=== PATIENT | male | born 1965 | race Caucasian/White ===

== ENCOUNTER 2016-12-08 16:37 | Observation (INO) | payer OTHER ==
[2016-12-08] MEDS ORDERED: ONDANSETRON HCL/PF 2 MG/ML VIAL IV ONE (16:46)
[2016-12-08] MEDS ORDERED: MORPHINE SULFATE 2 MG/ML DISP.SYRIN IV ONE ×2 (16:46→18:12)
[2016-12-08] MEDS ORDERED: DIPHTH,PERTUSS(ACELL),TET VAC 0.5 ML VIAL IM ONE ×2 (16:46→16:49)
[2016-12-08] MEDS ORDERED: MORPHINE SULFATE 2 MG/ML DISP.SYRIN ONE ×2 (16:48→18:13)
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
[2016-12-08] MEDS ORDERED: ONDANSETRON HCL/PF 2 MG/ML VIAL ONE (16:51)
[2016-12-08 16:57] LABS: Hematocrit 44.8 % (42.0-52.0); Hemoglobin 16.4 gm/dL (13.5-18.0); Mean Cell Volume 89.1 fl (78-100); Mean Corpuscular Hemoglobin 32.6 pg (27-31); Mean Corpuscular Hgb Conc 36.6 g/dl (32-36); Mean Platelet Volume 10.3 fl (6.0-9.5); Neutrophil % 48.1 % (42-75.0); Platelet Count 246 K/mm3 (150-450); Red Blood Count 5.03 M/mm3 (4.7-6.0); Red Cell Distribution Width 12.7 % (11.5-14.0); White Blood Count 10.4 K/mm3 (4.0-10.5)
[2016-12-08 17:11] LABS: Albumin * 4.1 gm/dl (3.4-5.0); Anion Gap 15.8 mmol/L (6.8-13.8); Bilirubin, Total 0.8 mg/dL (0.0-1.1); Ca. Corrected For Albumin 8.3 mg/dL (8.4-10.2); Calcium * 8.7 mg/dL (7.9-10.9); Carbon Dioxide 25.1 mmol/L (24-32.6); Potassium 4.9 mmol/L (3.4-4.6); Total Protein 7.5 gm/dL (6.2-8.2)
[2016-12-08 18:26] LABS: Cocaine Ur Negative (NEGATIVE); Urine Barbiturate Negative (NEGATIVE); Urine Benzodiazepines Negative (NEGATIVE); Urine PCP Negative (NEGATIVE); Urine THC Negative (NEGATIVE)
[2016-12-08 18:30] LABS: Urine Appearance Clear; Urine Bilirubin Negative (NEGATIVE); Urine Blood Negative /ul (NEGATIVE); Urine Color Yellow; Urine Ketone Negative (NEGATIVE)
[2016-12-08 18:31] LABS: Urine Bacteria None Seen; Urine Nitrite Negative (NEGATIVE); Urine Protein Negative (NEGATIVE); Urine RBC None Seen /hpf (0-5); Urine Specific Gravity 1.015 SP.GR. (1.005-1.030); Urine Urobilinogen Normal (NORMAL); Urine WBC 0-5 /hpf (0-5)
[2016-12-08 18:32] LABS: Urine Opiates Positive (NEGATIVE)
[2016-12-08] MEDS ORDERED: ONDANSETRON HCL/PF 2 MG/ML VIAL IV PRN (19:04)
[2016-12-08] MEDS ORDERED: IBUPROFEN 600 MG TABLET PO PRN (19:04)
[2016-12-08] MEDS ORDERED: MORPHINE SULFATE 4 MG/ML SYRG IV PRN (19:04)
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
[2016-12-08] MEDS: NORMAL SALINE 1,000 ML IV PRN (20:24)
[2016-12-08] MEDS: oxyCODONE HCL/ACETAMINOPHEN 1 TAB TABLET PO PRN (20:26)
[2016-12-08] MEDS ORDERED: SENNOSIDES/DOCUSATE SODIUM 1 TAB TABLET PO SCH (21:00)
[2016-12-09] MEDS: NORMAL SALINE 1,000 ML IV PRN (04:42)
[2016-12-09] MEDS: oxyCODONE HCL/ACETAMINOPHEN 1 TAB TABLET PO PRN ×2 (04:44→09:05)
[2016-12-09 06:38] LABS: Anion Gap 12.9 mmol/L (6.8-13.8); BUN/Creatinine Ratio 13.3 (9.0-21.6); Calcium * 8.1 mg/dL (7.9-10.9); Carbon Dioxide 24.8 mmol/L (24-32.6); Potassium 3.7 mmol/L (3.4-4.6)
[2016-12-09] MEDS ORDERED: NICOTINE 21 MG PATC TD SCH (07:00)
[2016-12-09] MEDS ORDERED: MORPHINE SULFATE 2 MG/ML DISP.SYRIN IV PRN (07:14)
--- NOTE | 2016-12-09 09:34 | CONS ---
[facility] - General Date of Service: 12/09/16 Source: patient, family, RN notes reviewed Exam Limitations: no limitations - History of Present Illness Initial Comments: ladder slid and he was left hanging and then fell on his left side. initial evaluation revealed fractured left 6th rib and very small pneumothorax. lacerations and contusions. Severity: mild Modifying Factors - (Worsens): Reports: movement Modifying Factors - (Improves): Reports: immobilization Associated Symptoms: other - left arm, rib and hip sore Allergies/Adverse Reactions: Allergies Penicillins Allergy (Unknown, Verified 12/08/16 19:52) Home Medications: Home Medications Medication Instructions Recorded Last Taken NK [No Home Medication] 12/08/16 Unknown - Patient's Past Medical History Patient History - Medical: Other - MRSA Patient History - Cardiac/Respiratory: Pneumonia Patient History - Cancer: No Hx of Cancer Patient History - Surgical Procedures: Total Knee Replacement, T & A, Other, Hernia Repair, Orthopedic Patient History - Other: None - Family History Grandfather-Maternal Family History - Medical: Family History - Cardiac/Respiratory: Myocardial Infarction Father Family History - Medical: Family History - Cancer: Throat - Social History Living Situations: spouse Abuse History: No History of abuse Psych History: No pertinent hx Smoking Status: Current every day smoker - 35 yr half pack a day smoker. Cigarettes Packs Per Day: 2 Have you smoked in the past 12 months: Yes Do you dip or chew tobacco: No Patient requests Smoking Cessation Consult: Yes Initiate information on Smoking Cessation: Yes Alcohol Use: occasionally Drug Use: none - Immunizations Immunizations Up to Date: No Procedures REPAIR RIGHT INGUINAL REGION, OPEN APPROACH (03/22/15) Medications - Medications Current Medications: Current Medications Sodium Chloride (Sodium Chloride 0.9%) 1,000 mls @ 125 mls/hr IV .Q8H PRN PRN Reason: HYDRATION Stop: 01/07/17 19:54 Last Admin: 12/09/16 04:42 Dose: 125 mls/hr Nicotine (Nicoderm) 21 mg TD Q24H CORA Stop: 01/08/17 07:01 Last Admin: 12/09/16 07:44 Dose: 21 mg Oxycodone/Acetaminophen (Percocet 5 Mg/325 Mg) 2 tab PO Q4H PRN PRN Reason: Moderate Pain Stop: 01/07/17 19:05 Last Admin: 12/09/16 09:05 Dose: 2 tab Senna/Docusate Sodium (Senokot-S) 2 tab PO HS CORA Stop: 01/07/17 21:01 Last Admin: 12/08/16 20:27 Dose: 2 tab Review of Systems - Review of Systems EENTM: Present: No Symptoms Reported Respiratory: Present: Other - no SOB, hurts to cough Abdominal: Present: No Symptoms Reported Genitourinary: Present: No Symptoms Reported Musculoskeletal: Present: Other - pain left arm and hip. OOB independently Neurological: Present: No Symptoms Reported Skin: Present: No Symptoms Reported Physical Examination - Exam Vital Signs: Vital Signs - Last Taken Temp 36.8 C 12/09/16 06:50 Pulse 69 12/09/16 06:50 Resp 17 12/09/16 06:50 BP 125/72 12/09/16 06:50 Pulse Ox 96 12/09/16 06:50 O2 Oxygen Delivery Method Room Air Constitutional: Present: Alert, Oriented x3, Cooperative, No distress ENT Exam: Present: normal ENT inspection Eye Exam: bilateral eye: normal inspection Neck: Present: full range of motion, normal inspection Respiratory: Present: normal breath sounds, no respiratory distress Cardiovascular/Chest: Present: normal peripheral pulses Abdomen: Present: other - denies pain or tenderness /Rectal: Present: Exam deferred Extremity: Present: normal range of motion, normal inspection Skin Exam: Present: normal color Neurologic: Present: stamp clerk II-XII nml as tested, no motor/sensory deficits Appearance: Present: appropriate appearance, appropriate insight Eye contact: Present: cooperative, good eye contact, normal speech Thoughts: Present: normal thought pattern - Assessments/Findings (1) Closed rib fracture Problem: Acute Qualifiers: Encounter type: initial encounter Rib fracture type: single rib Laterality: left Qualified Code(s): S22.32XA - Fracture of one rib, left side , initial encounter for closed fracture (2) Left pulmonary contusion Problem: Acute Qualifiers: Encounter type: initial encounter Qualified Code(s): S27.321A - Contusion of lung, unilateral, initial encounter (3) Pneumothorax on left Diagnosis(s): The finding is not visible on CXR and has not increased in size. Should not increase in size at this juncture Explained to patient and he knows to return for exam if becomes SOB Problem: Acute
--- NOTE | 2016-12-09 09:48 | DS ---
(1) Closed rib fracture Problem: Acute Qualifiers: Encounter type: initial encounter Rib fracture type: single rib Laterality: left Qualified Code(s): S22.32XA - Fracture of one rib, left side , initial encounter for closed fracture (2) Fracture, rib Problem: Acute Qualifiers: Rib fracture type: single rib Laterality: left (3) Laceration of wrist, left Problem: Acute Qualifiers: Encounter type: initial encounter Qualified Code(s): S61.512A - Laceration without foreign body of left wrist, initial encounter (4) Left pulmonary contusion Problem: Acute Qualifiers: Encounter type: initial encounter Qualified Code(s): S27.321A - Contusion of lung, unilateral, initial encounter (5) Pneumothorax on left Problem: Acute Description of Stay: Jorje is a 51 year old male who fell from a ladder while working on his roof. Fall was approximately 18 feet. Patient sustained a laceration to his left hand and was sutured in the ER. Patient landed on his left side sustaining left 6th rib fracture, left pulmonary contusion and tiny left pneumothorax. Patient was stable and pain was controlled overnight. Dr Rivera consulted on the patient in the am. By midday, the day after admission, patient was ready to be discharged home. Instructed patient on the importance of pulmonary toileting. Patient to follow up in the ER in 7 days to have sutures removed. Patient sent home with a prescription for pain medication. Procedures Performed: none Discharge Disposition: Home self care Disposition: Home self-care Condition: Undetermined Discharge Activity: Activity as tolerated Discharge Diet: General/regular food Consultation Done:: Dr Rivera Problem Oriented Discharge Instructions to Patient/Family: Rib Fracture, Pneumothorax Additional Patient Instructions (free text): push fluids. use incentive spirometer every 2 hours while awake to prevent pneumonia for the next 2 weeks. Return to the ER in 7 days to have sutures removed. Stop taking stool softeners if diarrhea develops. Follow up with pcp in 2-3 weeks. Prescriptions (Any new or edited meds): Ibuprofen [Motrin] 600 mg PO Q6H PRN #90 tablet PRN Reason: Mild Pain oxyCODONE HCL/ACETAMINOPHEN [Percocet 5 MG/325 MG] 1 - 2 tab PO Q4H PRN #60 tablet PRN Reason: Moderate Pain Sennosides/Docusate Sodium [Senokot-S] 2 tab PO HS #60 tablet Complete Home Medications List: Complete Home Medication List: Ibuprofen [Motrin] 600 mg PO Q6H PRN #90 tablet 12/09/16 Sennosides/Docusate Sodium [Senokot-S] 2 tab PO HS #60 tablet 12/09/16 oxyCODONE HCL/ACETAMINOPHEN [Percocet 5 MG/325 MG] 1 - 2 tab PO Q4H PRN #60 tablet 12/09/16
[2016-12-09 09:57] VITALS: BP 127/75
== END 2016-12-09 10:40 | disposition home or self-care (01) ==
LOC: ER 16:37 → MS 18:42 → EDBD 18:42
PROVIDERS: ADMIT Family Medicine; ATTEND Family Medicine
PROC: 0JQK0ZZ Repair Left Hand Subcutaneous Tissue and Fascia, Open Approach (ICD-10-PCS; principal; 2016-12-08)
PROC: 0JQH0ZZ Repair Left Lower Arm Subcutaneous Tissue and Fascia, Open Approach (ICD-10-PCS; principal; 2016-12-08)
DX: S27.0XXA Traumatic pneumothorax, initial encounter (principal); S22.32XA Fracture of one rib, left side, initial encounter for closed fracture; S27.321A Contusion of lung, unilateral, initial encounter; S61.512A Laceration without foreign body of left wrist, initial encounter; S61.215A Laceration without foreign body of left ring finger without damage to nail, initial encounter; W11.XXXA Fall on and from ladder, initial encounter; Y93.89 Activity, other specified; Y92.019 Unspecified place in single-family (private) house as the place of occurrence of the external cause; F17.210 Nicotine dependence, cigarettes, uncomplicated; Z96.652 Presence of left artificial knee joint
CPT/HCPCS: 12002; 36415; 70450; 71010; 71020; 71260; 72125; 73060; 73090; 74177; 80048; 80053; 80307; 81001; 85025; 86850; 86900; 87081; 90471; 90715; 96374; 96375; 96376; 99284; G0378; J2405

== ENCOUNTER 2016-12-10 18:23 | Emergency (ER) | payer OTHER ==
[2016-12-10] MEDS ORDERED: ASPIRIN 81 MG TAB.CHEW PO ONE (18:32)
--- NOTE | 2016-12-10 18:39 | ERNOTE ---
Medical Problem HPI - Narrative Date of Service: 12/10/16 - General Chief Complaint: General Assessment Time Seen by Provider: 12/10/16 18:31 Source: patient Exam Limitations: no limitations - Immun/Allergies/Home Medications Immunizations: IMMUNIZATION HX Immunizations Up to Date No Allergies/Adverse Reactions: Allergies Penicillins Allergy (Unknown, Verified 12/08/16 19:52) Home Medications: HOME MEDICATIONS Ibuprofen [Motrin] 600 mg PO Q6H PRN #90 tablet 12/09/16 [Last Taken Unknown] Sennosides/Docusate Sodium [Senokot-S] 2 tab PO HS #60 tablet 12/09/16 [Last Taken Unknown] oxyCODONE HCL/ACETAMINOPHEN [Percocet 5 MG/325 MG] 1 - 2 tab PO Q4H PRN #60 tablet 12/09/16 [Last Taken Unknown] - History of Present History Narrative: Pt. comes in with c/o L lateral chest pain that occurred just after he was using his IS an hour ago and felt a pop in his chest and felt searing immediate pain. Pt. states that his pain is accompanied by SOB, but denies any fever, NVD , recent illness or injury. Pt. denies any alleviating factors or prehospital tratment but states tath it worsens with movement and breathing. Review of Systems - Review of Systems Constitutional: Present: no symptoms reported. Absent: recent illness, fever, chills, weakness, fatigue, malaise EYE: Present: no symptoms reported ENT: Present: no symptoms reported Respiratory: Present: shortness of breath. Absent: cough, wheezing Cardiology: Present: chest pain Gastrointestinal/Abdominal: Present: no symptoms reported. Absent: nausea, vomiting, diarrhea Genitourinary: Present: no symptoms reported Musculoskeletal: Present: no symptoms reported. Absent: back pain, joint pain Skin: Present: no symptoms reported. Absent: dryness, change in hair/nails Neurological: Present: no symptoms reported. Absent: headache, dizziness/light- headedness, numbness, tingling All Other Systems: All systems neg except as marked - Patient's Past Medical History Patient History - Medical: Other - MRSA Patient History - Cardiac/Respiratory: Pneumonia Patient History - Cancer: No Hx of Cancer Patient History - Surgical Procedures: Total Knee Replacement, T & A, Other, Hernia Repair, Orthopedic Patient History - Other: None - Family History Grandfather-Maternal Family History - Medical: Family History - Cardiac/Respiratory: Myocardial Infarction Father Family History - Medical: Family History - Cancer: Throat - Social History Living Situations: spouse Abuse History: No History of abuse Psych History: No pertinent hx Alcohol Use: occasionally Drug Use: none - Immunizations Immunizations Up to Date: No Physical Exam - Physical Exam General Appearance: Present: wd/wn, alert, no apparent distress Head Exam: Present: normal inspection, no evidence of injury Eye Exam: Normal inspection: bilateral, PERRL: bilateral, EOMI: bilateral Ears, Nose, Throat: Present: normal ENT inspection, normal pharynx Neck: Present: normal inspection, nontender. Absent: lymphadenopathy (R), lymphadenopathy (L) Respiratory: Present: no respiratory distress, chest tenderness - L 3rd-5th ribs , decreased breath sounds Cardiovascular/Chest: Present: regular rate, rhythm, no murmur, normal peripheral pulses Gastrointestinal/Abdominal: Present: normal bowel sounds, nontender Back Exam: Present: normal inspection, normal range of motion, no CVA tenderness Extremity Exam: Present: normal inspection, non-tender, normal range of motion, no edema Neurological Exam: Present: alert, oriented, normal mood/affect, no motor/ sensory deficits, mrp controller II-XII nml as tested, normal cerebellar test Skin Exam: Present: normal color, warm/dry. Absent: pallor, skin rash ED Progress - Date and Time Seen: Date and Time: 12/10/16 19:[address] Esparza and we feel that pulmonary toileting as most appropriate treatment for pt. as lung xray is not changed much but atelactasis is worsening slightly. - Results and Orders Patient's Lab Results:: I have reviewed the patient's lab results. - Vital Signs Patient's Vital Signs:: I have reviewed the patient's vital signs. Vital Signs: Vital Signs 12/10/16 18:28 Temperature 37.2 C Pulse Rate 65 Respiratory 18 Rate Blood Pressure 138/91 O2 Sat by Pulse 98 Oximetry - X-Ray X-Ray #1 X-Ray: chest Interpretation: Reviewed by me X-ray Comments: no fracture or pneumothorax noted on this plain film as compared to recent CT scan. Increasing consolidation noted on LLL - Progress/Reassessment Chief Complaint: General Assessment Progress:: Unchanged Departure - Departure Clinical Impression: Atelectasis, left Left pulmonary contusion Qualifiers: Encounter type: subsequent encounter Qualified Code(s): S27.321D - Contusion of lung, unilateral, subsequent encounter Disposition: Home self-care Condition: Good Instructions: Pulmonary Contusion, [id number], Costochondritis, [id number] Additional Instructions: Please follow up with primary provider in 2-3 days. Take pain medications as prescribed, cough and deep breath as ordered, may take laxative of coice daily while taking pain medications while healing. Referrals: Randy Nelson DO [Primary Care Provider] -
[2016-12-10] MEDS ORDERED: ASPIRIN 81 MG TAB.CHEW ONE (18:41)
[2016-12-10 18:57] LABS: Hematocrit 42.8 % (42.0-52.0); Hemoglobin 15.4 gm/dL (13.5-18.0); Mean Cell Volume 91.1 fl (78-100); Mean Corpuscular Hemoglobin 32.8 pg (27-31); Mean Platelet Volume 10.3 fl (6.0-9.5); Neutrophil # 4.5 K/mm3 (1.3-6.0); Neutrophil % 63.2 % (42-75.0); Platelet Count 180 K/mm3 (150-450); Red Cell Distribution Width 12.7 % (11.5-14.0); White Blood Count 7.1 K/mm3 (4.0-10.5)
[2016-12-10 19:14] LABS: Prothrombin Time (Patient) 9.7 Seconds (9.4-11.4)
[2016-12-10] MEDS ORDERED: KETOROLAC TROMETHAMINE 60 MG/2 ML VIAL IM ONE ×2 (19:16→19:36)
[2016-12-10] MEDS ORDERED: ORPHENADRINE CITRATE 30 MG/ML VIAL IM ONE (19:17)
[2016-12-10 19:21] LABS: ALT 42 U/L (19-67); AST 34 U/L (0-48); Albumin * 3.6 gm/dl (3.4-5.0); Alkaline Phosphatase * 85 U/L (50-170); Anion Gap 13.9 mmol/L (6.8-13.8); Bilirubin, Total 0.4 mg/dL (0.0-1.1); Blood Urea Nitrogen 17 mg/dL (6-23); Ca. Corrected For Albumin 8.8 mg/dL (8.4-10.2); Calcium * 8.8 mg/dL (7.9-10.9); Carbon Dioxide 26.5 mmol/L (24-32.6); Chloride 105 mmol/L (97-106); Glucose * 96 mg/dL (70-110); INR 0.93 INR (0.90-1.10); Partial Thrombolplastin Time 26.2 Seconds (24-32); Potassium 4.4 mmol/L (3.4-4.6); Sodium 141 mmol/L (132-142); Total Protein 7.1 gm/dL (6.2-8.2)
[2016-12-10 19:22] LABS: Troponin I Less than 0.017 ng/ml (0.00-0.10)
[2016-12-10] MEDS ORDERED: ORPHENADRINE CITRATE 30 MG/ML VIAL ONE (19:36)
[2016-12-10 21:22] VITALS: BP 135/82
== END 2016-12-10 19:48 | disposition home or self-care (01) ==
LOC: EDBD → ER 18:23
DX: J98.11 Atelectasis (principal); S27.321A Contusion of lung, unilateral, initial encounter